=== PATIENT | female | born 1965 | race American Indian/Alaskan Native ===

== ENCOUNTER 2019-04-02 17:39 | Emergency (ER) | payer SELFPAY ==
--- NOTE | 2019-04-02 17:54 | Event Note ---
ED Screening Note Date of service: 04/02/19 Time: 17:45 ED Screening Note: 53 y/o female comes in for abd pain that wraps around to her back. Pain 8/10 This initial assessment/diagnostic orders/clinical plan/treatment(s) is/are subject to change based on patients health status, clinical progression and re- assessment by fellow clinical providers in the ED. Further treatment and workup at subsequent clinical providers discretion. Patient/guardian urged not to elope from the ED as their condition may be serious if not clinically assessed and managed. Initial orders include:
--- NOTE | 2019-04-02 18:58 | Cat Scan Report ---
CT abdomen pelvis wo con INDICATION / CLINICAL INFORMATION: MAIN: lower left. started this morning. abd pain using 4slice. TECHNIQUE: Axial CT imaging without IV or oral contrast is obtained. Coronal and sagittal reformatted imaging ob tained and reviewed. All CT scans at this location are performed using CT dose reduction for ALARA by means of automated exposure control. COMPARISON: None available. FINDINGS: CT abdomen without contrast demonstrates grossly normal appearance of the liver, spleen, pancreas, an d adrenal glands. Gallbladder is present and without obvious abnormality. There is prominent left hydronephrosis. This is caused by a 7 mm calculus in the mid left ureter at t he level of L3. It is unclear if this is one large calculus or multiple calculi. There is a nonobstru cting 4 mm calculus in the right kidney. CT pelvis without contrast demonstrates normal appearance of the appendix. No pelvic mass free fluid or inflammatory change noted. GI tract is grossly unremarkable. Visualized lung bases are clear. No significant osseous abnormality. IMPRESSION: 1. Prominent left hydronephrosis caused by a 7 mm calculus in the mid left ureter at the level of L3. It is unclear if this is one large calculus or 2 smaller adjacent calculi. 2. Right nephrolithiasis without obstruction. Signer Name: Dyana Vitale MD Signed: 04/02/2019 6:53 PM Workstation Name: [id number]
[2019-04-02 19:00] LABS: Basophils # (Auto) 0.1 K/mm3 (0.0-0.1); Basophils % (Auto) 0.8 % (0.0-1.8); Eosinophils # (Auto) 0.2 K/mm3 (0.0-0.4); Eosinophils % (Auto) 2.4 % (0.0-4.3); Hematocrit 40.5 % (30.3-42.9); Hemoglobin 13.7 gm/dl (10.1-14.3); Lymphocytes # (Auto) 2.6 K/mm3 (1.2-5.4); Lymphocytes % (Auto) 36.5 % (13.4-35.0); Mean Corpuscular HGB Conc 34 % (30-34); Mean Corpuscular Hemoglobin 32 pg (28-32); Mean Corpuscular Volume 96 fl (79-97); Monocytes # (Auto) 0.6 K/mm3 (0.0-0.8); Monocytes % (Auto) 8.1 % (0.0-7.3); Platelet Count 305 K/mm3 (140-440); Red Blood Count 4.24 M/mm3 (3.65-5.03); Red Cell Distribution Width 13.5 % (13.2-15.2)
[2019-04-02 19:21] LABS: Alanine Aminotransferase 17 units/L (7-56); Albumin 4.2 g/dL (3.9-5); BUN/Creatinine Ratio 16; Blood Urea Nitrogen 13 mg/dL (7-17); Calcium 9.8 mg/dL (8.4-10.2); Hemolysis Index 26
[2019-04-02 19:24] LABS: Bacteria,Urine 3+ /HPF (Negative); Bilirubin,Urine NEG (Negative); Blood,Urine LG (Negative); Calcium Oxalate Crystals,Urine 1+; Color,Urine Yellow (Yellow); Mucus,Urine FEW /HPF; Urobilinogen,Urine < 2.0 mg/dL (<2.0)
[2019-04-02 19:25] LABS: RBC,Urine > 182.0 /HPF (0.0-6.0)
[2019-04-02] MEDS ORDERED: TORADOL IV ONE (19:26)
[2019-04-02] MEDS ORDERED: NACL 0.9% 1000 ML 1,000 ML IV ONE (19:26)
[2019-04-02] MEDS ORDERED: ZOFRAN IV ONE ×2 (19:26→20:54)
--- NOTE | 2019-04-02 20:39 | Emergency Department Report ---
ED Abdominal Pain HPI - General Chief Complaint: Abdominal Pain Stated Complaint: LOWER RT SIDE PAIN/BACK PAIN Time Seen by Provider: 04/02/19 18:46 Source: patient Mode of arrival: Ambulatory Limitations: No Limitations - History of Present Illness Initial Comments: Patient is a 53-year-old female who presents to the emergency room with complaints of left flank pain radiating to the left lower quadrant that began a few hours prior to arrival. she has associated nausea. She denies any vomiting, diarrhea, fever. Denies any urinary symptoms. She states she has a past medical history of nephrolithiasis 5 years ago but they were able to pass on their own. she has never seen a urologist. She has a past abdominal surgical history of total hysterectomy. She denies any other past medical history. she states her only allergy is to codeine. Severity scale (0 -10): 10 - Related Data Previous Rx's Medication Instructions Recorded Last Taken Type Ibuprofen [Motrin] 600 mg PO Q8H PRN #50 tablet 05/02/14 07/27/14 11:00 Rx Naproxen [Naprosyn TAB] 500 mg PO BID #20 tablet 07/27/14 Unknown Rx methOCARBAMOL [Robaxin] 500 mg PO Q6H PRN #14 tablet 07/27/14 Unknown Rx Ondansetron [Zofran Odt] 4 mg PO Q8HR PRN #14 tab.rapdis 04/02/19 Unknown Rx Tamsulosin [Flomax] 0.4 mg PO QDAY #10 cap 04/02/19 Unknown Rx traMADol [Ultram 50 MG tab] 50 mg PO Q6HR PRN #12 tablet 04/02/19 Unknown Rx Allergies Allergy/AdvReac Type Severity Reaction Status Date / Time codeine AdvReac Itching Verified 04/02/19 17:46 ED Review of Systems ROS: Stated complaint: LOWER RT SIDE PAIN/BACK PAIN Other details as noted in HPI Comment: All other systems reviewed and negative ED Past Medical Hx - Surgical History Additional Surgical History: HYSTERECTOMY - Social History Smoking Status: Never Smoker Substance Use Type: None - Medications Home Medications: Home Medications Medication Instructions Recorded Confirmed Last Taken Type Ibuprofen [Motrin] 600 mg PO Q8H PRN #50 tablet 05/02/14 07/27/14 07/27/14 11:00 Rx Naproxen [Naprosyn TAB] 500 mg PO BID #20 tablet 07/27/14 Unknown Rx methOCARBAMOL [Robaxin] 500 mg PO Q6H PRN #14 tablet 07/27/14 Unknown Rx Ondansetron [Zofran Odt] 4 mg PO Q8HR PRN #14 tab.rapdis 04/02/19 Unknown Rx Tamsulosin [Flomax] 0.4 mg PO QDAY #10 cap 04/02/19 Unknown Rx traMADol [Ultram 50 MG tab] 50 mg PO Q6HR PRN #12 tablet 04/02/19 Unknown Rx ED Physical Exam - General Limitations: No Limitations General appearance: alert, in no apparent distress - Head Head exam: Present: atraumatic, normocephalic - Eye Eye exam: Present: normal appearance - ENT ENT exam: Present: mucous membranes moist - Respiratory Respiratory exam: Present: normal lung sounds bilaterally. Absent: respiratory distress, wheezes, rales, rhonchi, stridor, chest wall tenderness, accessory muscle use, decreased breath sounds, prolonged expiratory - Cardiovascular Cardiovascular Exam: Present: regular rate, normal rhythm, normal heart sounds. Absent: systolic murmur, diastolic murmur, rubs, gallop - GI/Abdominal GI/Abdominal exam: Present: soft, tenderness (LLQ), normal bowel sounds. Absent: distended, guarding, rebound, rigid - Back Exam Back exam: Present: CVA tenderness (L) - Neurological Exam Neurological exam: Present: alert, oriented X3 - Psychiatric Psychiatric exam: Present: normal affect, normal mood - Skin Skin exam: Present: warm, dry, intact ED Course Vital Signs 04/02/19 04/02/19 17:45 22:04 Temperature 97.9 F 98.6 F Pulse Rate 94 H 81 Respiratory 16 16 Rate Blood Pressure 179/89 Blood Pressure 168/73 [Right] O2 Sat by Pulse 99 99 Oximetry - Consultations Consultation #1: 04/02/19 21:[address] [place]hotra, [place] [facility] [place] that [place] will need follow up within one week and is an outpatient candidate that can follow up in clinic, states can [place] [facility] [place] ED Medical Decision Making - Lab Data Result diagrams: 04/02/19 18:03 04/02/19 18:03 Lab Results 07/20/19 07/20/19 07/20/19 Range/Units 18:03 18:03 18:31 WBC 7.1 (4.5-11.0) K/mm3 RBC 4.24 (3.65-5.03) M/mm3 Hgb 13.7 (10.1-14.3) gm/dl Hct 40.5 (30.3-42.9) % MCV 96 (79-97) fl MCH 32 (28-32) pg MCHC 34 (30-34) % RDW 13.5 (13.2-15.2) % Plt Count 305 (140-440) K/mm3 Lymph % (Auto) 36.5 H (13.4-35.0) % [place] % (Auto) 8.1 H (0.0-7.3) % Eos % (Auto) 2.4 (0.0-4.3) % Baso % (Auto) 0.8 (0.0-1.8) % Lymph # 2.6 (1.2-5.4) K/mm3 [place] # 0.6 (0.0-0.8) K/mm3 Eos # 0.2 (0.0-0.4) K/mm3 Baso # 0.1 (0.0-0.1) K/mm3 Seg Neutrophils % 52.2 (40.0-70.0) % Seg Neutrophils # 3.7 (1.8-7.7) K/mm3 Sodium 137 (137-145) mmol/L Potassium 3.9 (3.6-5.0) mmol/L Chloride 104.4 (98-107) mmol/L Carbon Dioxide 19 L (22-30) mmol/L Anion Gap 18 mmol/L BUN 13 (7-17) mg/dL Creatinine 0.8 (0.7-1.2) mg/dL Estimated GFR > 60 ml/min BUN/Creatinine Ratio 16 % Glucose 90 (65-100) mg/dL Calcium 9.8 (8.4-10.2) mg/dL Total Bilirubin 0.30 (0.1-1.2) mg/dL AST 16 (5-40) units/L ALT 17 (7-56) units/L Alkaline Phosphatase 116 (35-129) units/L Total Protein 7.5 (6.3-8.2) g/dL Albumin 4.2 (3.9-5) g/dL Albumin/Globulin Ratio 1.3 % Urine Color Yellow (Yellow) Urine Turbidity Slightly-cloudy (Clear) Urine pH 5.0 (5.0-7.0) Ur Specific [place] 1.020 (1.003-1.030) Urine Protein 30 mg/dl (Negative) mg/dL Urine Glucose (UA) Neg (Negative) mg/dL Urine Ketones Neg (Negative) mg/dL Urine Blood Lg (Negative) Urine Nitrite Neg (Negative) Urine Bilirubin Neg (Negative) Urine Urobilinogen < 2.0 (<2.0) mg/dL Ur Leukocyte Esterase Neg (Negative) Urine WBC (Auto) 4.0 (0.0-6.0) /HPF Urine RBC (Auto) > 182.0 (0.0-6.0) /HPF U Epithel Cells (Auto) 8.0 (0-13.0) /HPF Urine Bacteria (Auto) 3+ (Negative) /HPF Calcium Oxalate Crystal 1+ Urine Mucus Few /HPF Urine Yeast (Budding) 2+ /HPF - Radiology Data Radiology results: report reviewed CT abdomen pelvis wo con INDICATION / CLINICAL INFORMATION: MAIN: lower left. started this morning. abd pain using 4slice. TECHNIQUE: Axial CT imaging without IV or oral contrast is obtained. Coronal and sagittal reformatted imaging obtained and reviewed. All CT scans at this location are performed using CT dose reduction for ALARA by means of automated exposure control. COMPARISON: None available. FINDINGS: CT abdomen without contrast demonstrates grossly normal appearance of the liver, spleen, pancreas, and adrenal glands. Gallbladder is present and without obvious abnormality. There is prominent left hydronephrosis. This is caused by a 7 mm calculus in the mid left ureter at the level of L3. It is unclear if this is one large calculus or multiple calculi. There is a nonobstructing 4 mm calculus in the right kidney. CT pelvis without contrast demonstrates normal appearance of the appendix. No pelvic mass free fluid or inflammatory change noted. GI tract is grossly unremarkable. Visualized lung bases are clear. No significant osseous abnormality. IMPRESSION: 1. Prominent left hydronephrosis caused by a 7 mm calculus in the mid left ureter at the level of L3. It is unclear if this is one large calculus or 2 smaller adjacent calculi. 2. Right nephrolithiasis without obstruction. Signer Name: Dyana Vitale MD Signed: 04/02/2019 6:53 PM Workstation Name: [id number] Transcribed By: Dictated By: Dyana Vitale MD Electronically Authenticated By: Dyana Vitale MD Signed Date/Time: 04/02/19 4621 - Medical Decision Making Patient is a 53-year-old female who presents to the emergency room with complaints of left flank pain radiating to the left lower quadrant that began a few hours prior to arrival. she has associated nausea. She denies any vomiting, diarrhea, fever. Denies any urinary symptoms. She states she has a past medical history of nephrolithiasis 5 years ago but they were able to pass on their own. she has never seen a urologist. She has a past abdominal surgical history of total hysterectomy. She denies any other past medical history. she states her only allergy is to codeine. VSS. labs WNL, no evidence of UTI. CT abd pelvis shows 1. Prominent left hydronephrosis caused by a 7 mm calculus in the mid left ureter at the level of L3. It is unclear if this is one large calculus or 2 smaller adjacent calculi. 2. Right nephrolithiasis without obstruction. [place] Malhotra, [place] [facility] [place] that pt will need follow up within one week and is an outpatient candidate that can follow up in clinic, states can [place] [facility] [place] pts pain well controlled while in the ED. states she is feeling much better. pt given prescription for tramadol, flomax, and zofran. advised pt to please follow up with a urologist in the next 2-3 days. it is very important you follow up with a urologist. take medication as prescribed. do not drive or operate heavy machinery while taking pain medication. drink plenty of water. return to the emergency room for any new or worsening symptoms. - Differential Diagnosis nephrolithiasis, SBO, diverticulitis, colitis, UTI, ovarian cyst Critical care attestation.: If time is entered above; I have spent that time in minutes in the direct care of this critically ill patient, excluding procedure time. ED Disposition Clinical Impression: Nephrolithiasis Hydronephrosis Qualifiers: Hydronephrosis type: unspecified Qualified Code(s): N13.30 - Unspecified hydronephrosis Disposition: DC-01 TO HOME OR SELFCARE Is pt being admited?: No Does the pt Need Aspirin: No Condition: Stable Instructions: Kidney Stones (ED), Hydronephrosis (ED) Additional Instructions: please follow up with a urologist in the next 2-3 days. it is very important you follow up with a urologist. take medication as prescribed. do not drive or operate heavy machinery while taking pain medication. drink plenty of water. return to the emergency room for any new or worsening symptoms. Prescriptions: Tamsulosin [Flomax] 0.4 mg PO QDAY #10 cap traMADol [Ultram 50 MG tab] 50 mg PO Q6HR PRN #12 tablet PRN Reason: Pain , Severe (7-10) Ondansetron [Zofran Odt] 4 mg PO Q8HR PRN #14 tab.rapdis PRN Reason: Nausea And Vomiting Referrals: [facility] MD DELL [Primary Care Provider] - 2-3 Days ABIEL CABAN MD [Staff Physician] - 2-3 Days Time of Disposition: 21:07 Print Language: UZBEK
[2019-04-02] MEDS ORDERED: SUBLIMAZE IV ONE (20:54)
[2019-04-02 22:05] VITALS: BP 168/73
== END 2019-04-02 22:05 | disposition home or self-care (01) ==
LOC: ED 17:39
DX: N13.2 Hydronephrosis with renal and ureteral calculous obstruction (principal); Z90.710 Acquired absence of both cervix and uterus; Z79.1 Long term (current) use of non-steroidal anti-inflammatories (NSAID); Z79.899 Other long term (current) drug therapy; Z88.5 Allergy status to narcotic agent
CPT/HCPCS: 36415; 74176; 80053; 81001; 85025; 96374; 96375; 99284; J1885; J2405; J3010; J7030

== ENCOUNTER 2021-11-14 08:25 | Emergency (ER) | payer OTHER ==
[2021-11-14] MEDS ORDERED: dexAMETHasone 4 MG/ML VIAL IM ONE (09:05)
--- NOTE | 2021-11-14 09:05 | Emergency Department Report ---
ED Back Pain/Injury HPI - General Chief Complaint: Headache Stated Complaint: PAIN IN SIDE OF HEAD Time Seen by Provider: 11/14/21 09:03 Source: patient Limitations: No Limitations - Related Data Previous Rx's Medication Instructions Recorded Last Taken Type Ibuprofen [Motrin] 600 mg PO Q8H PRN #50 tablet 05/02/14 07/27/14 11:00 Rx Naproxen [Naprosyn TAB] 500 mg PO BID #20 tablet 07/27/14 Unknown Rx methOCARBAMOL [Robaxin] 500 mg PO Q6H PRN #14 tablet 07/27/14 Unknown Rx Ondansetron [Zofran Odt] 4 mg PO Q8HR PRN #14 tab.rapdis 04/02/19 Unknown Rx Tamsulosin [Flomax] 0.4 mg PO QDAY #10 cap 04/02/19 Unknown Rx traMADoL [Ultram 50 MG tab] 50 mg PO Q6HR PRN #12 tablet 04/02/19 Unknown Rx Allergies Allergy/AdvReac Type Severity Reaction Status Date / Time codeine AdvReac Itching Verified 11/14/21 08:35 ED Review of Systems ROS: Stated complaint: PAIN IN SIDE OF HEAD Other details as noted in HPI Comment: All other systems reviewed and negative ED Past Medical Hx - Past Medical History Previous Medical History?: No - Surgical History Past Surgical History?: Yes Additional Surgical History: HYSTERECTOMY - Family History Family history: no significant - Social History Smoking Status: Never Smoker Substance Use Type: None - Medications Home Medications: Home Medications Medication Instructions Recorded Confirmed Last Taken Type Ibuprofen [Motrin] 600 mg PO Q8H PRN #50 tablet 05/02/14 07/27/14 07/27/14 11:00 Rx Naproxen [Naprosyn TAB] 500 mg PO BID #20 tablet 07/27/14 Unknown Rx methOCARBAMOL [Robaxin] 500 mg PO Q6H PRN #14 tablet 07/27/14 Unknown Rx Ondansetron [Zofran Odt] 4 mg PO Q8HR PRN #14 tab.rapdis 04/02/19 Unknown Rx Tamsulosin [Flomax] 0.4 mg PO QDAY #10 cap 04/02/19 Unknown Rx traMADoL [Ultram 50 MG tab] 50 mg PO Q6HR PRN #12 tablet 04/02/19 Unknown Rx ED Physical Exam - General Limitations: No Limitations General appearance: alert, in no apparent distress - Head Head exam: Present: atraumatic, normocephalic - Eye Eye exam: Present: normal appearance - ENT ENT exam: Present: mucous membranes moist - Neck Neck exam: Present: normal inspection - Respiratory Respiratory exam: Present: normal lung sounds bilaterally. Absent: respiratory distress - Cardiovascular Cardiovascular Exam: Present: regular rate, normal rhythm. Absent: systolic murmur, diastolic murmur, rubs, gallop - GI/Abdominal GI/Abdominal exam: Present: soft, normal bowel sounds - Extremities Exam Extremities exam: Present: normal inspection - Back Exam Back exam: Present: normal inspection - Neurological Exam Neurological exam: Present: alert, oriented X3 - Psychiatric Psychiatric exam: Present: normal affect, normal mood - Skin Skin exam: Present: warm, dry, intact, normal color. Absent: rash ED Course Vital Signs 11/14/21 08:38 Temperature 98.0 F Pulse Rate 70 Respiratory 18 Rate Blood Pressure 181/100 O2 Sat by Pulse 98 Oximetry Critical care attestation.: If time is entered above; I have spent that time in minutes in the direct care of this critically ill patient, excluding procedure time. ED Disposition Clinical Impression: Muscle strain, Elevated blood pressure reading Disposition: 01 HOME / SELF CARE / HOMELESS Is pt being admited?: No Does the pt Need Aspirin: No Condition: Stable Additional Instructions: warm compresses meds as we discussed new pillow as we discussed follow up with pcp as planned Referrals: REYNA RASHID MD [Staff Physician] - 3-5 Days Forms: Work/School Release Form(ED) Time of Disposition: 09:04
[2021-11-14 09:58] VITALS: BP 166/81
== END 2021-11-14 09:57 | disposition home or self-care (01) ==
LOC: ED 08:25
DX: T14.8XXA Other injury of unspecified body region, initial encounter (principal); R03.0 Elevated blood-pressure reading, without diagnosis of hypertension; Z90.710 Acquired absence of both cervix and uterus; Z88.5 Allergy status to narcotic agent; X58.XXXA Exposure to other specified factors, initial encounter; Y93.89 Activity, other specified; Y92.89 Other specified places as the place of occurrence of the external cause; Y99.8 Other external cause status
CPT/HCPCS: 96372; 99282; J1100